=== PATIENT | female | born 1970 | race Caucasian/White ===

== ENCOUNTER 2020-10-17 07:30 | Inpatient (IN) | payer MEDICAID ==
[2020-10-10 15:35] LABS: BASOPHILS # (AUTO) 0.1 X10'3 (0-0.2); EOSINOPHILS # (AUTO) 0.4 X10'3 (0-0.9); EOSINOPHILS % (AUTO) 5.7 % (0-6); MEAN CORPUSCULAR HEMOGLOBIN 27.4 PG (27.0-31.0); MEAN CORPUSCULAR HGB CONC 32.2 g/dL (33.0-36.5); MEAN CORPUSCULAR VOLUME 85.1 FL (78-98); MEAN PLATELET VOLUME 8.1 FL (7.4-10.4); MONOCYTES # (AUTO) 0.6 X10'3 (0-0.9); MONOCYTES % (AUTO) 7.5 % (2-12); NEUTROPHILS # (AUTO) 4.4 X10'3 (1.8-7.7); NEUTROPHILS % (AUTO) 58.8 % (42-75); PRE OP HEMATOCRIT 40.3 % (35.0-45.0); PRE OP PLATELET COUNT 328 X10'3 (140-440); RED BLOOD COUNT 4.73 X10'6 (4.20-5.60); RED CELL DISTRIBUTION WIDTH 25.9 % (11.5-14.5)
[2020-10-10 15:37] LABS: CLARITY,URINE CLEAR (Clear); COLOR,URINE STRAW (Yellow); GLUCOSE, URINE NEGATIVE (Neg); KETONES,URINE NEGATIVE (Neg); LEUKOCYTE ESTERASE ,URINE NEGATIVE (Neg); NITRITES, URINE NEGATIVE (Neg); OCCULT BLOOD,URINE NEGATIVE (Neg); PROTEIN,URINE NEGATIVE (Neg); URINE HCG NEGATIVE (NEG); UROBILINOGEN,URINE 0.2 E.U/dL (0.2-1.0)
[2020-10-10 15:40] LABS: UA COLLECTION TYPE NON-SPECIFIED
[2020-10-10 15:50] LABS: ALBUMIN 3.6 G/DL (3.4-5.0); ALKALINE PHOSPHATASE 64 IU/L (46-116); BLOOD UREA NITROGEN 14 MG/DL (7-18); BUN/CREATININE RATIO 16.3 (6.6-38.0); CALCIUM 8.7 MG/DL (8.5-10.1); CHLORIDE 102 MMOL/L (99-107); CREATININE 0.86 MG/DL (0.40-0.90); PRE OP ALT 21 U/L (30-65); PRE OP ANION GAP 11 (8-16); PRE OP AST 17 U/L (10-37); PRE OP BILIRUB, TOTAL 0.1 MG/DL (0.0-1.0); PRE OP GLUCOSE 87 MG/DL (70-104); PRE OP SODIUM 139 MMOL/L (135-145); TOTAL CARBON DIOXIDE 26.1 MMOL/L (24-32); TOTAL PROTEIN 7.1 G/DL (6.4-8.2); eGFR 70 ML/MIN
[2020-10-10 15:54] LABS: HEMOGLOBIN A1C 5.1 % (4.5-6.2)
[2020-10-10 15:56] LABS: PRE OP POTASSIUM 3.1 MMOL/L (3.4-5.1)
[2020-10-10 16:38] LABS: ANISOCYTOSIS 3+; ELLIPTOCYTES FEW; HYPOCHROMASIA 1+; PLATELET ESTIMATE NORMAL; POLYCHROMASIA FEW; TEAR DROP CELLS 1+
[~2020-10-17] VITALS: Ht 175.3 cm; Wt 93.9 kg
[2020-10-17] VITALS (32 sets, daily range): BP systolic 132–164; BP diastolic 81–117
[~2020-10-17 07:30] MED LIST: BUPR150T14 PO; CITA20TA2 PO; HYDR12.55 PO; HYDR25TA5 PO; METF-436 PO; NORG1TAB13 PO; ceFOXitin 2GM-NS 100mL ADDvant 100 ML IV ONE; famotidine 20mg tablet PO ONE; ringers solution, lacted 1,000 ML IV SCH
[2020-10-17] MEDS ORDERED: vasoPRESSIN 20 units/ml inj. ONE (09:27)
[2020-10-17] MEDS ORDERED: BUPIVAcaine 0.5% W/EPI /PF 30ml vial ONE (09:30)
[2020-10-17] MEDS ORDERED: BUPIVAcaine/PF 2.5mg/ml (0.25%) 10ml vial ONE (09:35)
[2020-10-17] MEDS ORDERED: epiNEPHrine 1 mg/ml inj ONE (09:35)
[2020-10-17] MEDS ORDERED: sevoflurane 250ml liquid IH ONE (09:51)
[2020-10-17] MEDS ORDERED: midazolam 1 mg/ML 2ml injection ONE (09:56)
[2020-10-17] MEDS ORDERED: fentaNYL /PF 50mcg/ml 5ml ampule ONE (10:04)
[2020-10-17] MEDS ORDERED: acetaminophen 1,000mg/100ml IV 100 ML IV PRN (10:15)
[2020-10-17] MEDS ORDERED: hydrALAZINE 20mg/ml inj. IV PRN (10:15)
[2020-10-17] MEDS ORDERED: proCHLORperazine 10 MG/2 ml inj IV PRN (10:15)
[2020-10-17] MEDS ORDERED: ringers solution, lacted 1,000 ML IV SCH (10:15)
[2020-10-17] MEDS ORDERED: ondansetron/PF 4mg/2ml inj IV PRN ×2 (10:15→11:40)
[2020-10-17] MEDS ORDERED: HYDROmorphone/PF 0.2 MG/ML SYRINGE IV PRN (10:15)
[2020-10-17] MEDS ORDERED: labetalol 20mg/4ml (5mg/ml) syringe IV PRN (10:15)
[2020-10-17] MEDS ORDERED: meperidine/PF 25mg/ml syringe IV PRN ×2 (10:15)
[2020-10-17] MEDS ORDERED: propofol inj 20 ML IV ONE (10:18)
[2020-10-17] MEDS ORDERED: ondansetron/PF 4mg/2ml inj ONE (10:18)
[2020-10-17] MEDS ORDERED: rocuronium 10mg/ml inj IV ONE ×2 (10:18→11:11)
[2020-10-17] MEDS ORDERED: dexamethasone sod phosphate 4mg/ml inj. ONE (10:18)
[2020-10-17] MEDS ORDERED: meperidine/PF 50mg/ml syringe ONE (11:11)
[2020-10-17] MEDS ORDERED: neostigmine methylsulfate 1 MG/ML 10ml vial ONE (11:33)
[2020-10-17] MEDS ORDERED: glycopyrrolate 0.2mg/ml inj ONE (11:33)
[2020-10-17] MEDS ORDERED: albuterol 60 PUFF/8GM Inhaler IH ONE (11:39)
[2020-10-17] MEDS ORDERED: temazepam 15mg capsule PO PRN (11:40)
[2020-10-17] MEDS ORDERED: diphenhydrAMINE 50 mg/ml inj IV PRN (11:40)
[2020-10-17] MEDS ORDERED: metoclopramide 5 mg/ml inj IV PRN (11:40)
[2020-10-17] MEDS ORDERED: LORazepam 2 mg/ml vial IV PRN (11:40)
[2020-10-17] MEDS ORDERED: normal saline 500ml IV soln 500 ML IV PRN (11:40)
[2020-10-17] MEDS ORDERED: magnesium hydroxide 30ml (MOM) UD suspension PO PRN (11:40)
[2020-10-17] MEDS: ringers solution, lacted 1,000 ML IV SCH ×2 (11:40→19:40)
[2020-10-17] MEDS ORDERED: HYDROcodone/acetaminophen 10/325mg tab PO PRN ×2 (11:40)
[2020-10-17] MEDS ORDERED: LORazepam 1 MG tablet PO PRN (11:40)
--- NOTE | 2020-10-17 11:45 | NUR ---
Received from OR via BED, accompanied by Anesthesiologist DR. LINDQUIST and report given by Anesthesiologist. PATIENT WAKING UP, VERY PAINFUL D/T INABILITY TO PROVIDE BLOCK, V/S WNL, CSM INTACT, SCD ON, PIV TO LUE, PERIPAD W/ SCANT DRAINAGE, DERMABOND TO INCISON SITE-CDI.
[2020-10-17] MEDS: meperidine/PF 25mg/ml syringe IV PRN ×4 (12:00→13:45)
[2020-10-17] MEDS: HYDROmorphone/PF 0.2 MG/ML SYRINGE IV PRN ×3 (12:22→13:20)
[2020-10-17] MEDS: ketorolac trometh. 30mg/ml inj. IV PRN ×2 (12:48→21:13)
--- NOTE | 2020-10-17 15:01 | NUR ---
Received report from Lobo SINGH in recovery. Expecting pt via bed.
--- NOTE | 2020-10-17 15:15 | NUR ---
PATIENT HAS MET ALL CRITERIA FOR TRANSFER TO THE SURGICAL FLOOR. VSS. SMALL BLEED NOTED TO MIDDLE OF SURGICAL INCISION-FOUND UPON ARRIVAL TO FLOOR-PRIMARY RN AWARE, PT'S PAIN IS BETTER CONTROLLED AFTER MULTIPLE NARCOTICS, TYLENOL AND TORADOL, F/C DRAINING WELL, PT SPLINTING WELL FOR COUGH. TAKEN VIA BED WITH BELONGINGS TO ROOM 354C, REPORT CALLED TO ERIN-ALL QUESTIONS ANSWERED, BED LOW, CALL LIGHT PRESENT AND 2 RAILS UP. RN PRESENT TO ACCEPT CARE OF PATIENT AND REPORT HAS BEEN CALLED. ALL QUESTIONS ANSWERED TO ACCEPTING RN.
[2020-10-17] MEDS: ceFAZolin 1GM/D5W- ADD-VANTAGE 50 ML IV SCH (16:37)
--- NOTE | 2020-10-17 19:03 | NUR ---
Problems reprioritized. Patient report given, questions answered & plan of care reviewed with Emily RN.
[2020-10-17] MEDS ORDERED: metFORMIN 500mg tablet PO SCH (20:00)
[2020-10-17] MEDS: docusate sod 100mg capsule PO SCH (21:08)
[2020-10-17] MEDS: citalopram 20mg tablet PO SCH (21:08)
[2020-10-18] MEDS: ceFAZolin 1GM/D5W- ADD-VANTAGE 50 ML IV SCH ×2 (00:04→08:15)
[2020-10-18] MEDS: ketorolac trometh. 30mg/ml inj. IV PRN ×2 (03:19→09:22)
[2020-10-18 03:30] VITALS: BP 134/75
[2020-10-18] MEDS: ringers solution, lacted 1,000 ML IV SCH (03:40)
[2020-10-18 06:33] LABS: BASOPHILS % (AUTO) 0.1 % (0-1); EOSINOPHILS % (AUTO) 0.1 % (0-6); HEMATOCRIT 36.1 % (35.0-45.0); LYMPHOCYTES # (AUTO) 1.2 X10'3 (1.1-4.8); MEAN CORPUSCULAR HEMOGLOBIN 28.3 PG (27.0-31.0); MEAN CORPUSCULAR HGB CONC 33.2 g/dL (33.0-36.5); MEAN CORPUSCULAR VOLUME 85.5 FL (78-98); MEAN PLATELET VOLUME 7.8 FL (7.4-10.4); MONOCYTES # (AUTO) 1.1 X10'3 (0-0.9); MONOCYTES % (AUTO) 9.8 % (2-12); NEUTROPHILS # (AUTO) 8.5 X10'3 (1.8-7.7); PLATELET COUNT 282 X10'3 (140-440); RED BLOOD COUNT 4.22 X10'6 (4.20-5.60); RED CELL DISTRIBUTION WIDTH 24.6 % (11.5-14.5); WHITE BLOOD COUNT 10.7 X10'3 (4.5-11.0)
[2020-10-18 06:42] LABS: ALBUMIN 2.8 G/DL (3.4-5.0); ANION GAP 9 (8-16); BLOOD UREA NITROGEN 10 MG/DL (7-18); BUN/CREATININE RATIO 12.2 (6.6-38.0); CALCIUM 7.7 MG/DL (8.5-10.1); CHLORIDE 104 MMOL/L (99-107); CREATININE 0.82 MG/DL (0.40-0.90); GLUCOSE 109 MG/DL (70-104); POTASSIUM 3.8 MMOL/L (3.5-5.1); SODIUM 139 MMOL/L (135-145); TOTAL CARBON DIOXIDE 26.3 MMOL/L (24-32); eGFR 74 ML/MIN
--- NOTE | 2020-10-18 06:49 | NUR ---
Patient in room [facility]. I have received report from FRANCISCO Diaz and had the opportunity to ask questions and assume patient care.
[2020-10-18 07:00] VITALS: BP 156/73
[2020-10-18 07:18] LABS: ANISOCYTOSIS 3+; PLATELET ESTIMATE NORMAL; POIKILOCYTOSIS FEW
[2020-10-18] MEDS ORDERED: enoxaparin 40mg/0.4ml syringe SQ SCH (08:00)
[2020-10-18] MEDS ORDERED: buPROPion SR 150mg tablet PO SCH (08:00)
[2020-10-18] MEDS: citalopram 20mg tablet PO SCH (08:00)
[2020-10-18] MEDS ORDERED: HYDROchlorothiazide 12.5mg capsule PO SCH (08:00)
[2020-10-18] MEDS ORDERED: non-formulary drug (Hydrochlorothiazide 1 TAB) PO SCH (08:00)
[2020-10-18] MEDS: docusate sod 100mg capsule PO SCH (08:16)
== END 2020-10-18 13:25 | disposition home or self-care (01) | DRG 519 ==
LOC: PAS IN 07:46 → SUR 3N 11:41
PROVIDERS: ADMIT Obstetrics & Gynecology Obstetrics; ATTEND Obstetrics & Gynecology Obstetrics
PROC: 0UT70ZZ Resection of Bilateral Fallopian Tubes, Open Approach (ICD-10-PCS; 2020-10-17)
PROC: 0HB7XZX Excision of Abdomen Skin, External Approach, Diagnostic (ICD-10-PCS; 2020-10-17)
PROC: 0UT90ZZ Resection of Uterus, Open Approach (ICD-10-PCS; principal; 2020-10-17 09:51)
DX: D25.9 Leiomyoma of uterus, unspecified (principal); G89.29 Other chronic pain; N94.6 Dysmenorrhea, unspecified
CPT/HCPCS: 36415; 71046; 80047; 80048; 80053; 81003; 81025; 82948; 83036; 85008; 85025; 86885; 86900; 86901; 87081; 93005; A4618; A7000; C1758; G0378; J0131; J0171; J0690; J0694; J1100; J1170; J1650; J1885; J2175; J2250; J2405; J2704; J2710; J3010; J3490; J7120; U0003; U0005

== ENCOUNTER 2021-06-07 10:33 | Emergency (ER) | payer MEDICAID ==
[~2021-06-07] VITALS: Ht 175.3 cm; Wt 98.7 kg
[~2021-06-07 10:33] MED LIST changes: +BUPR-230 PO; -BUPR150T14 PO; -HYDR25TA5 PO; -ceFOXitin 2GM-NS 100mL ADDvant 100 ML IV ONE; -famotidine 20mg tablet PO ONE; -ringers solution, lacted 1,000 ML IV SCH
[2021-06-07] MEDS ORDERED: BUPIVAcaine 0.25% w/Epi /PF 30ml vial SQ ONE (10:45)
[2021-06-07] MEDS ORDERED: BUPIVAcaine/PF 7.5mg/ml (0.75%) 10ml vial IJ ONE (11:00)
[2021-06-07 11:56] VITALS: BP 132/88
== END 2021-06-07 11:58 | disposition home or self-care (01) ==
LOC: ER 10:33
DX: S81.811A Laceration without foreign body, right lower leg, initial encounter (principal); I10 Essential (primary) hypertension; E11.9 Type 2 diabetes mellitus without complications; Z90.710 Acquired absence of both cervix and uterus; Z98.890 Other specified postprocedural states; Z88.2 Allergy status to sulfonamides; Z88.8 Allergy status to other drugs, medicaments and biological substances; Z88.5 Allergy status to narcotic agent; Z79.899 Other long term (current) drug therapy; X58.XXXA Exposure to other specified factors, initial encounter; Y93.89 Activity, other specified; Y92.89 Other specified places as the place of occurrence of the external cause; Y99.8 Other external cause status
CPT/HCPCS: 12002; 99282